=== PATIENT | male | born 1975 | race African-American/Black ===

== ENCOUNTER 2016-06-25 09:23 | Emergency (ER) | payer MEDICAID ==
[~2016-06-25] VITALS: Ht 175.3 cm; Wt 117.9 kg
[2016-06-25 09:38] VITALS: BP 158/77
== END 2016-06-25 11:34 | disposition home or self-care (01) ==
LOC: ER 09:23
DX: S90.31XA Contusion of right foot, initial encounter (principal); W11.XXXA Fall on and from ladder, initial encounter; Y93.89 Activity, other specified; Y99.8 Other external cause status; Y92.009 Unspecified place in unspecified non-institutional (private) residence as the place of occurrence of the external cause
CPT/HCPCS: 73700

== ENCOUNTER 2017-02-09 13:05 | Emergency (ER) | payer MEDICAID ==
[~2017-02-09] VITALS: Ht 177.8 cm; Wt 113.4 kg
[2017-02-09 14:01] VITALS: BP 136/78
== END 2017-02-09 14:39 | disposition home or self-care (01) ==
LOC: ER 13:08
DX: S39.012A Strain of muscle, fascia and tendon of lower back, initial encounter (principal); V89.2XXA Person injured in unspecified motor-vehicle accident, traffic, initial encounter; Y93.89 Activity, other specified; Y99.8 Other external cause status; Y92.89 Other specified places as the place of occurrence of the external cause
CPT/HCPCS: 72100